=== PATIENT | female | born 2000 | race Hispanic/Latino ===

== ENCOUNTER → 2024-08-07 09:55 | Outpatient (REF) | payer OTHER, SELFPAY | LOC: RAD 09:55 | PROVIDERS: ATTENDING PHYSICIAN Physician Assistant | DX: R10.2 Pelvic and perineal pain (principal) | CPT/HCPCS: 76830; 76856 ==

== ENCOUNTER → 2024-09-29 09:51 | Outpatient (REF) | payer OTHER, SELFPAY | LOC: RAD 09:51 | PROVIDERS: ATTENDING PHYSICIAN Physician Assistant | DX: R93.89 Abnormal findings on diagnostic imaging of other specified body structures (principal) | CPT/HCPCS: 76830; 76856 ==

== ENCOUNTER 2024-12-20 08:07 | Emergency (ER) | payer OTHER, SELFPAY ==
[2024-12-20 08:08] VITALS: BP 124/83
[2024-12-20 08:42] LABS: HCG, Serum Qualitative Screen Negative
[2024-12-20 08:44] LABS: % Basophils 0.1 % (0-2); % Immature Granulocytes 0.6 % (0-0.5); % Lymphocytes 2.8 % (20.5-51.1); % Monocytes 1.6 % (1.7-9.3); % Neutrophils 94.9 % (42.2-75.2); Absolute Immature Granulocytes 0.1 10^3/uL (0-0.05); Absolute Lymphocytes 0.5 10^3/uL (1.2-3.4); Absolute Monocytes 0.3 10^3/uL (0.1-0.6); Absolute Neutrophils 16.8 10^3/uL (1.4-6.5); Hematocrit 45.7 % (37.0-47.0); Hemoglobin 15.1 g/dL (12.0-16.0); Mean Corpuscular Hgb 28.7 pg (27.0-31.0); Mean Corpuscular Volume 86.9 fL (81.0-99.0); Mean Platelet Volume 12.1 fL (7.4-10.4); Nucleated Red Blood Cells % 0 %; Platelet Count 219 10^3/uL (130-400); Red Blood Cell Count 5.26 10^6/uL (4.20-5.40); Red Cell Dist. Width 12.6 % (11.5-14.5); White Blood Cell Count 17.7 10^3/uL (4.8-10.8)
[2024-12-20 08:51] LABS: ALT (SGPT) 30 U/L (0-35); AST (SGOT) 23 U/L (14-36); Albumin 5.3 g/dl (3.5-5.0); Alkaline Phosphatase 121 U/L (38-126); Blood Urea Nitrogen 15 mg/dl (7-17); Calcium 9.8 mg/dl (8.4-10.2); Carbon Dioxide 23 mmol/L (22-30); Chloride 100 mmol/L (98-107); Glucose 198 mg/dl (70-99); Potassium 4.5 mmol/L (3.5-5.1); Sodium 140 mmol/L (135-145); Total Bilirubin 1.4 mg/dl (0.2-1.3); Total Protein 8.6 g/dl (6.3-8.2); eGFR > 60.00
--- NOTE | 2024-12-20 09:18 | ED.GENMED ---
History of Present Illness
General
Chief Complaint: Abdominal Symptoms
Source: patient
Exam Limitations: none
Time Seen by Provider: 12/20/24 08:56
History of Present Illness
History of Present Illness:
24yoF with a history of type 2 diabetes on Jardiance presenting for evaluation of vomiting. Symptoms began around midnight last night. She has vomited about 15 times since her symptoms began. She also reports some central abdominal discomfort.
Several family members are currently sick with similar symptoms. Her brother was in the ED earlier for vomiting and was told he had a virus. Her son tested positive for the flu about 5 days ago. She denies any suspicious food intake. No fevers,
diarrhea, hematemesis, difficulty urinating. Previous abdominal surgeries include a section.
Past History
Past History
ED Past Medical History: Negative Asthma, HTN, Hypercholesterolemia or NIDDM
ED Past Surgical History: None
Social History
Tobacco: Non-smoker
Alcohol: None
Personal: Single
Living: with family
Phy Exam
General Physical Exam
General Presentation: well appearing and no apparent distress
General age: appears stated age
General Skin: warm and dry
General Habitus: normal
General Mental: alert
ENT Exam
ENT Exam: normocephalic
Cardiovascular Exam
Cardiovascular Exam: regular rate/rhythm
Pulmonary Exam
Pulmonary Exam: lungs clear, no respiratory distress, no rales, no crackles and no rhonchi
Gastrointestinal Exam
Gastrointestinal Exam: soft, non distended and other (+Tenderness in periumbilical region. Abdomen soft, non-distended. No rebound or guarding. )
Neurological Exam
Neurological Exam: alert
[place] Coma Scale
Eye Opening: Spontaneous
Verbal Response: Oriented
Motor Response: Obeys Commands
GCS Total Score: 15
Skin Exam
Skin Exam: normal color and warm/dry
Psychiatric Exam
Psychiatric Exam: normal mood/affect
Course
Orders/Labs/Results
Orders:
Orders
12/20/24 08:10
Test Result ONCE
12/20/24 08:28
Complete Blood Count/With Diff Urgent
Comprehensive Metabolic Panel Urgent
HCG, Serum Qualitative Screen Urgent
Lipase Urgent
12/20/24 09:17
CT Abd/pelvis W Iv Cont Urgent
Comment:
Reason For Exam: Periumbilical pain, vomiting
0.9% Sodium Chloride 1000 ml [Nss] 1,000 ml IV BOLUS
Ondansetron Injectable [Zofran] 4 mg IV NOW STA
12/20/24 09:23
Influenza A+B Rapid Molecular Urgent
SHANTELL Source: Nasal Swab
Specimen Description:
12/20/24 10:58
Bedside Glucose- Treatment ONCE
Nursing to Place Non Medication Order As Directed
Physician Order: PO challenge
Abnormal Lab Results
12/20/24 12/20/24
08:28 11:32
WBC 17.7 H 10^3/uL
(4.8-10.8)
MPV 12.1 H fL
(7.4-10.4)
Abs Immat Gran (auto) 0.1 H 10^3/uL
(0-0.05)
Absolute Neuts (auto) 16.8 H 10^3/uL
(1.4-6.5)
Absolute Lymphs (auto) 0.5 L 10^3/uL
(1.2-3.4)
Immature Gran % 0.6 H %
(0-0.5)
Neutrophils % 94.9 H %
(42.2-75.2)
Lymphocytes % 2.8 L %
(20.5-51.1)
Monocytes % 1.6 L %
(1.7-9.3)
Creatinine 0.5 L mg/dL
(0.6-1.0)
Glucose 198 H mg/dl
(70-99)
Total Bilirubin 1.4 H mg/dl
(0.2-1.3)
Total Protein 8.6 H g/dl
(6.3-8.2)
Albumin 5.3 H g/dl
(3.5-5.0)
POC Glucose 107 H mg/dl
(70-99)
12/20/24 08:28
12/20/24 08:28
Vital Signs
Initial and Last Documented VS:
Initial Vital Signs
Temp Pulse Resp BP Pulse Ox
97.8 F 117 16 124/83 99
12/20/24 08:08 12/20/24 08:08 12/20/24 08:08 12/20/24 08:08 12/20/24 08:08
Last Documented Vital Signs
Temp Pulse Resp BP Pulse Ox
97.8 F 117 16 124/83 99
12/20/24 08:08 12/20/24 08:08 12/20/24 08:08 12/20/24 08:08 12/20/24 08:08
MDM/Problems Addressed
Differential Diagnosis Includes:
24yoF here with n/v that started last night. Family members also sick. C/o abd pain. Hx of T2DM. HR is 117 in triage, remainder of vitals are stable. She is well appearing in no distress. No signs of peritonitis on abdominal exam. Differential
diagnosis includes but is not limited to: gastroenteritis, gastritis, appendicitis, viral illness, dehydration
Initial ED plan: Labs obtained in triage. Leukocytosis present with WBC of 17.7 which is likely reactive 2/2 vomiting. Glucose 198. Bicarb normal. Electrolytes and renal function WNL. HCG negative. Will check influenza swab and CT abdomen. IV Zofran
and fluid bolus for symptoms.
*Critical Care Note
Total Time (30-74mins, 75-104mins- exclusive of procedures): Not Applicable
Update Note
Update Note:
CT abdomen is negative for acute findings. No evidence of appendicitis noted. Patient feeling improved on reassessment. She was able to tolerate p.o. challenge. No episodes of vomiting throughout ED stay. Repeat fingerstick glucose is 107. No
indication for admission at this time. Suspect viral illness. Supportive care discussed and prescription for Zofran provided. Advised follow-up with PCP. ED return precautions discussed. Patient in agreement with plan and was discharged in
stable condition.
ED Attending Note
-
Portions of this chart may have been created with voice recognition software.� Occasional wrong word or��sound alike� substitutions may have occurred due to the inherent limitations of voice recognition software.
Discharge Plan
Departure
Patient Disposition: Home (Routine Discharge)
Date of Disposition: 12/20/24
Time of Disposition: 11:22
Patient with high blood pressure during this ER visit?: No
Discharge Problem:
Nausea & vomiting
Instructions: Nausea and Vomiting, Adult (DC)
Prescriptions:
New
ondansetron 4 mg tablet,disintegrating
4 mg PO Q6H PRN (Reason: nausea and vomiting) Qty: 20 0RF
No Action
PNV cmb#95-ferrous fumarate-FA [] 1 EACH tablet
1 ea PO DAILY
oxycodone-acetaminophen 5 MG/325 MG tablet
1 - 2 tab PO Q4HPRN PRN (Reason: severe pain) Qty: 20 0RF
ibuprofen 600 MG tablet
600 mg PO Q4HPRN PRN (Reason: cramps) 0RF
Referrals:
Dara Bowles PA-C [Family Provider] -
Activity Restrictions/Additional Instructions:
Take Zofran as needed for nausea. Drink plenty of fluids and eat a bland diet (bananas, rice, applesauce, toast).
Please follow-up with your family doctor. Return to the ER with any worsening symptoms or if you are unable to keep down liquids.
Interventions
Interventions:
*Risk Screen - Suicide Last Done: 12/20/24 08:08
*General Assessment Last Done: 12/20/24 08:08
*Neglect/Abuse Screening Last Done: 12/20/24 08:08
*Nursing Disposition Last Done: 12/20/24 11:36
KL-Vxpozp-Puytxlrfvw Assessment Last Done: 12/20/24 09:27
Discharge Date and Time
Discharge Date/Time: 12/20/24 11:49
Print Language: TAMAZIGHT
[2024-12-20 09:22] LABS: Lipase 65 U/L (23-300)
[2024-12-20 09:27] VITALS: BMI 25.4
[2024-12-20] MEDS: ZOFRAN 4 MG IV (09:34)
[2024-12-20] MEDS: NSS 1000 IV (09:35)
[2024-12-20 11:33] LABS: Glucose - Point of Care 107 mg/dl (70-99)
== END 2024-12-20 11:49 | disposition home or self-care (01) ==
LOC: EMR 08:07
PROVIDERS: EMERGENCY PHYSICIAN Emergency Medicine; FAMILY PHYSICIAN Physician Assistant
DX: R11.2 Nausea with vomiting, unspecified (principal)
CPT/HCPCS: 99285; 96374; 74177; 80053; 82962; 83690; 84703; 85025; 87502; Q9967

== ENCOUNTER → 2025-04-19 12:52 | Outpatient (REF) | payer OTHER, SELFPAY | LOC: RAD 12:52 | PROVIDERS: ATTENDING PHYSICIAN Physician Assistant | DX: Z32.01 Encounter for pregnancy test, result positive (principal); R10.31 Right lower quadrant pain | CPT/HCPCS: 36415; 76801; 76817; 84702 ==

== ENCOUNTER → 2025-04-21 09:51 | Outpatient (REF) | payer OTHER, SELFPAY | LOC: REG 09:51 | PROVIDERS: ATTENDING PHYSICIAN Physician Assistant | DX: R10.31 Right lower quadrant pain (principal); Z32.01 Encounter for pregnancy test, result positive; N93.9 Abnormal uterine and vaginal bleeding, unspecified | CPT/HCPCS: 36415; 84702; 87086 ==

== ENCOUNTER → 2025-04-23 09:49 | Outpatient (REF) | payer OTHER, SELFPAY ==
[2025-04-23 11:03] LABS: Urine Albumin Negative (Neg - Trace); Urine Bilirubin Negative (Negative); Urine Character Clear (Clear); Urine Color Yellow; Urine Glucose Negative (Negative); Urine Ketone Negative (Negative); Urine Leukocyte 2+ (Negative); Urine Nitrite Negative (Negative); Urine Occult Blood 3+ (Negative); Urine Urobilinogen Negative (Neg - 1+)
[2025-04-23 11:16] LABS: HCG, Serum Qualitative Screen Positive
[2025-04-23 11:48] LABS: Urine Amorphous Seen
== END ==
LOC: REG 09:49
PROVIDERS: ATTENDING PHYSICIAN Physician Assistant; REFERRING PHYSICIAN Family Medicine
DX: R10.31 Right lower quadrant pain (principal); Z32.01 Encounter for pregnancy test, result positive; N93.9 Abnormal uterine and vaginal bleeding, unspecified; O03.9 Complete or unspecified spontaneous abortion without complication
CPT/HCPCS: 36415; 81003; 81015; 84702; 84703; 87086

== ENCOUNTER 2025-05-03 18:33 | Emergency (ER) | payer OTHER, SELFPAY ==
[2025-05-03 18:37] VITALS: BP 136/81
--- NOTE | 2025-05-03 19:33 | ED.GENMED ---
History of Present Illness
General
Chief Complaint: Problems
Source: patient
Exam Limitations: none
Time Seen by Provider: 05/03/25 19:20
History of Present Illness
History of Present Illness:
24yo female with a history of type 2 diabetes presenting for evaluation of vaginal bleeding. Patient found out she was on 04/11/25 and started to have vaginal bleeding the following day. She had a pelvic ultrasound on 04/19/25 which
showed a suspected gestational sac without embryo or yolk sac. 'Patient is 6 weeks, 4 days by LMP dating. heart rate would be expected by this stage of gestation. Please correlate with serial beta hCG levels.' She has been following
with [facility] and her last HCG level was 10 days ago which was 2600. She started to have vaginal bleeding again yesterday and she was told to go to the ED for evaluation for concern for an ectopic . She reports light spotting
currently and has only used 1 pad today. She denies any abdominal pain, dizziness, syncope. Blood type is A+.
Past History
Past History
ED Past Medical History: Negative Asthma, HTN, Hypercholesterolemia or NIDDM
ED Past Surgical History: None
Social History
Tobacco: Non-smoker
Alcohol: None
Personal: Single
Living: with family
Phy Exam
General Physical Exam
General Presentation: well appearing and no apparent distress
General Skin: warm and dry
General Habitus: normal
General Mental: alert
ENT Exam
ENT Exam: normocephalic
Gastrointestinal Exam
Gastrointestinal Exam: non tender, soft and non distended
Neurological Exam
Neurological Exam: alert
[place] Coma Scale
Eye Opening: Spontaneous
Verbal Response: Oriented
Motor Response: Obeys Commands
GCS Total Score: 15
Skin Exam
Skin Exam: normal color and warm/dry
Psychiatric Exam
Psychiatric Exam: normal mood/affect
Course
Orders/Labs/Results
Orders:
Orders
05/03/25
US W Transvaginal Urgent
Reason For Exam: BLEEDING
05/03/25 20:06
Beta HCG Quantitative Urgent
Is this a screen?: No
Complete Blood Count/With Diff Urgent
Comprehensive Metabolic Panel Urgent
Abnormal Lab Results
05/03/25
20:06
MPV 11.8 H fL
(7.4-10.4)
Absolute Neuts (auto) 7.8 H 10^3/uL
(1.4-6.5)
Neutrophils % 81.1 H %
(42.2-75.2)
Lymphocytes % 12.6 L %
(20.5-51.1)
Creatinine 0.4 L mg/dL
(0.6-1.0)
Glucose 217 H mg/dl
(70-99)
05/03/25 20:06
05/03/25 20:06
Vital Signs
Initial and Last Documented VS:
Initial Vital Signs
Temp Pulse Resp BP Pulse Ox
98.3 F 107 20 136/81 100
05/03/25 18:37 05/03/25 18:37 05/03/25 18:37 05/03/25 18:37 05/03/25 18:37
Last Documented Vital Signs
Temp Pulse Resp BP Pulse Ox
98.3 F 96 18 111/60 96
05/03/25 18:37 05/03/25 22:39 05/03/25 22:39 05/03/25 22:00 05/03/25 22:39
Information
Weeks gestation: N/A
Location: N/A
MDM/Problems Addressed
Differential Diagnosis Includes:
24yoF sent in by [facility] for concern for ectopic . LMP in mid February. Recent US 2 weeks ago did not show a pole and HCG levels have been increasing. C/o very minor spotting currently. Otherwise asymptomatic and denies pain.
VSS. She is well appearing in no distress. Abdominal exam is benign. Differential diagnosis includes but is not limited to: ectopic , molar , missed , threatened miscarriage
Initial ED plan: Check CBC, CMP, quantitative HCG, and pelvic ultrasound. Chart reviewed and blood type is A+.
*Pulse Oximetry
Patient hypoxic: no (96%)
*Critical Care Note
Total Time (30-74mins, 75-104mins- exclusive of procedures): Not Applicable
Update Note
Update Note:
Quantitative hCG is around 4000 which has increased from 2600 ten days ago. Hemoglobin normal at 12.7. Ultrasound shows no significant change from prior scan. Findings diagnostic of failure. No adnexal masses or free fluid noted. I
called and spoke with on-call blackener at [facility], Dr. Constance Kaur. Dr. Kaur recommends that patient call the office tomorrow for follow-up. Patient will likely need D&E vs. cytotec. Findings discussed with patient and stressed the
importance of close f/u. Strict ED return precautions reviewed. Patient discharged in stable condition.
ED Attending Note
-
Portions of this chart may have been created with voice recognition software.� Occasional wrong word or��sound alike� substitutions may have occurred due to the inherent limitations of voice recognition software.
Discharge Plan
Departure
Patient Disposition: Home (Routine Discharge)
Date of Disposition: 05/03/25
Time of Disposition: 22:36
Patient with high blood pressure during this ER visit?: No
Discharge Problem:
of unknown anatomic location, Vaginal bleeding affecting early
Instructions: Threatened Miscarriage (DC)
Prescriptions:
No Action
PNV cmb#95-ferrous fumarate-FA [] 1 EACH tablet
1 ea PO DAILY
oxycodone-acetaminophen 5 MG/325 MG tablet
1 - 2 tab PO Q4HPRN PRN (Reason: severe pain) Qty: 20 0RF
ibuprofen 600 MG tablet
600 mg PO Q4HPRN PRN (Reason: cramps) 0RF
ondansetron 4 mg tablet,disintegrating
4 mg PO Q6H PRN (Reason: nausea and vomiting) Qty: 20 0RF
Referrals:
Dara Bowles PA-C [Family Provider, Family Practice]
Activity Restrictions/Additional Instructions:
Please call your OBGYN office first thing tomorrow morning to talk about next steps.
Return to the ER immediately with any worsening symptoms including dizziness, passing out, abdominal pain, or heavy bleeding (>2 pads/hour).
Interventions
Interventions:
*Risk Screen - Suicide Last Done: 05/03/25 18:37
*General Assessment Last Done: 05/03/25 18:37
*Neglect/Abuse Screening Last Done: 05/03/25 18:37
*ED- Fall Risk Assessment Last Done: 05/03/25 21:00
*ED COVID-19 Vaccine History Last Done: 05/03/25 21:00
*Nursing Disposition Last Done: 05/03/25 22:50
ED-Female Genitourinary Assessment Last Done: 05/03/25 20:56
Discharge Date and Time
Discharge Date/Time: 05/03/25 22:51
Print Language: RUSSIAN
[2025-05-03 20:15] LABS: % Basophils 0.3 % (0-2); % Eosinophils 0.2 % (0-6); % Immature Granulocytes 0.1 % (0-0.5); % Lymphocytes 12.6 % (20.5-51.1); % Monocytes 5.7 % (1.7-9.3); % Neutrophils 81.1 % (42.2-75.2); Absolute Lymphocytes 1.2 10^3/uL (1.2-3.4); Absolute Monocytes 0.6 10^3/uL (0.1-0.6); Absolute Neutrophils 7.8 10^3/uL (1.4-6.5); Hematocrit 37.4 % (37.0-47.0); Hemoglobin 12.7 g/dL (12.0-16.0); Mean Corpuscular Hgb 29.8 pg (27.0-31.0); Mean Corpuscular Volume 87.8 fL (81.0-99.0); Mean Platelet Volume 11.8 fL (7.4-10.4); Nucleated Red Blood Cells % 0 %; Platelet Count 197 10^3/uL (130-400); Red Blood Cell Count 4.26 10^6/uL (4.20-5.40); Red Cell Dist. Width 12.7 % (11.5-14.5); White Blood Cell Count 9.6 10^3/uL (4.8-10.8)
[2025-05-03 20:27] LABS: ALT (SGPT) 24 U/L (0-35); AST (SGOT) 17 U/L (14-36); Albumin 4.7 g/dl (3.5-5.0); Alkaline Phosphatase 80 U/L (38-126); Blood Urea Nitrogen 14 mg/dl (7-17); Calcium 9.4 mg/dl (8.4-10.2); Carbon Dioxide 24 mmol/L (22-30); Chloride 105 mmol/L (98-107); Glucose 217 mg/dl (70-99); Potassium 4.1 mmol/L (3.5-5.1); Sodium 139 mmol/L (135-145); Total Bilirubin 0.7 mg/dl (0.2-1.3); Total Protein 7.7 g/dl (6.3-8.2); eGFR > 60.00
[2025-05-03 21:57] VITALS: BP 116/59
[2025-05-03 22:00] VITALS: BP 111/60
== END 2025-05-03 22:51 | disposition home or self-care (01) ==
LOC: EMR 18:33
PROVIDERS: Physician Assistant; EMERGENCY PHYSICIAN Emergency Medicine; FAMILY PHYSICIAN Physician Assistant
DX: O36.80X0 Pregnancy with inconclusive fetal viability, not applicable or unspecified (principal); O20.9 Hemorrhage in early pregnancy, unspecified; Z3A.01 Less than 8 weeks gestation of pregnancy
CPT/HCPCS: 99284; 76801; 76817; 80053; 84702; 85025